=== PATIENT | female | born 1995 | race Hispanic/Latino ===

== ENCOUNTER 2022-08-26 09:32 | Emergency (ER) | payer MEDICAID, OTHER ==
[~2022-08-26] VITALS: Ht 157.5 cm; Wt 96.6 kg
[2022-08-26 09:33] VITALS: BP 125/82
[2022-08-26 11:04] LABS: APPEARANCE,URINE CLEAR (CLEAR); BILIRUBIN,URINE NEGATIVE (NEGATIVE); COLOR,URINE LIGHT-YELLOW (YELLOW); GLUCOSE, URINE (UA) NEGATIVE (NEGATIVE); KETONES,URINE NEGATIVE (NEGATIVE); LEUKOCYTE ESTERASE ,URINE NEGATIVE Leu/uL (NEGATIVE); NITRATE,URINE NEGATIVE (NEGATIVE); PROTEIN,URINE NEGATIVE (NEGATIVE); UROBILINOGEN,URINE 0.2 mg/dL (0.2-1.0)
[2022-08-26 11:06] LABS: HCG,QUALITATIVE URINE NEGATIVE (NEGATIVE)
[2022-08-26] MEDS ORDERED: IBUP-2070 PO (11:07)
[2022-08-26] MEDS ORDERED: CIPR7.5D OT (11:07)
[2022-08-26 11:09] LABS: SQUAMOUS EPITHELIAL CELL,UR RARE /HPF (0-2); WBC,URINE 0-1 /HPF (0-1)
[2022-08-26] MEDS ORDERED: KETOROLAC 30MG VIAL (30MG/ML) IM ONE (11:30)
== END 2022-08-26 12:54 | disposition home or self-care (01) ==
LOC: EDH 09:32
DX: H92.03 Otalgia, bilateral (principal); H60.8X3 Other otitis externa, bilateral
CPT/HCPCS: 81001; 81025